=== PATIENT | female | born 1970 | race Caucasian/White ===

== ENCOUNTER 2021-03-17 22:15 | Emergency (ER) | payer OTHER, SELFPAY ==
[2021-03-17 22:17] VITALS: BP 123/76; PULSE 89; RESP 16; TEMP 36.1; O2SAT 97; BMI 32.3
[2021-03-17 22:20] VITALS: BP 123/76; PULSE 89; RESP 16; TEMP 36.1; O2SAT 97
--- NOTE | 2021-03-17 22:30 | RAD_ITS ---
STUDY: X-RAY CHEST REASON FOR EXAM: Female, 50 years old. SOB TECHNIQUE: AP COMPARISON: None. FINDINGS: Bilateral breast implants. No dense airspace consolidation. Mild reticulation in the bilateral lung bases may be accentuated by overlying chest wall artifact. There is no demonstrated pleural abnormality. Normal size heart. Normal mediastinum and michelle. Normal visualized pulmonary arteries. Normal visualized aortic arch and descending thoracic aorta. Normal visualized thoracic spine. Normal visualized ribs, clavicles, and shoulders. There is no demonstrated abnormality of the visualized soft tissue structures of the upper abdomen. RAD/Chest 1 View IMPRESSION: No airspace consolidation. Early bibasilar interstitial infiltrates possible versus chest wall attenuation artifact. Electronically Signed: Tonny Echavarria MD ([place]) at 22:46 EST , Service support ,
[2021-03-17 23:26] LABS: Probe Check PASS; Specimen Processing Control PASS
--- NOTE | 2021-03-17 23:34 | EX.ED.VIS.UR ---
HPI HPI - URI History of Present Illness Chief Complaint: Cough Narrative Narrative: 50-year-old female presenting with cough for 5 days. She states she went to urgent care and her tested positive for COVID-19 and she tested negative. She is been on doxycycline and steroids. Patient states that she was tested twice after her tested positive and she still was negative. She is not having fever or chills. She is not severely dyspneic. She complains of a painful cough but other than that she is eating and drinking normally and making normal urine and stool. ROS ROS ED Constitutional Constitutional ED: Denies chills or fever(s) Eyes Eyes: Denies blurry vision or change in vision ENT ENT ED: Denies rhinorrhea or sore throat Cardiovascular Cardiovascular: Denies chest pain or palpitations Respiratory/Chest Respiratory/Chest: Reports cough and dyspnea Gastrointestinal Gastrointestinal: Denies abdominal pain or nausea Genitourinary Genitourinary ED: Denies dysuria or hematuria Musculoskeletal Musculoskeletal: Denies arthralgias or myalgias Integumentary Denies abscess or rash Neurologic Neurologic: Denies headache(s) or weakness Psychiatric Psychiatric: Denies anxiety or depression PFSH PFSH Home Medications benzonatate 200 mg PO TID PRN 03/17/21 [History Last Taken Unknown] doxycycline hyclate 100 mg PO BID 03/17/21 [History Last Taken Unknown] natalizumab [Tysabri] 300 mg IV Q28D 03/17/21 [History Last Taken Unknown] Allergy/AdvReac Type Severity Reaction Status Date / Time Penicillins [PCN] Allergy Shortness Verified 03/17/21 22:20 of breath Social History Smoking Status: Current some day smoker tobacco type: cigarettes EXAM Physical Exam Const Vital Signs: 03/17/21 22:17 03/17/21 22:20 Temperature 97 F L 97 F L Temperature Source Temporal Temporal Pulse Rate 89 89 Respiratory Rate 16 16 Blood Pressure 123/76 H 123/76 H Blood Pressure Mean 91 91 Pulse Ox 97 97 Oxygen Delivery Method Room Air Room Air Positive well nourished General Appearance ED: NAD; Negative for pallor HEENT Reports moist mucous membranes normocephalic and atraumatic Eyes PERRL and EOMs intact bilaterally Neck supple and no meningeal signs Resp normal respiratory effort and clear to auscultation bilaterally Cardio Rate: regular rate Rhythm: regular rhythm GI non-tender and non-distended Palpation: soft Neuro oriented x3 Sensorium / Orientation: alert Psych mental status grossly normal Skin General Skin Exam: Negative for jaundice or pallor MDM MDM MDM Narrative Medical decision making narrative: Patient presenting with cough and concerned she might have Covid given her 's positive test. She tested negative with the PCR today on day 5. Her chest x-ray on my interpretation does show possible mild interstitial infiltrates. The radiologist does state that this could be chest wall attenuation artifact. Patient is not hypoxic, tachypneic, tachycardic. She nontoxic-appearing. I feel she is safe for discharge home. Patient given return precautions. Impression: 1. Viral syndrome Lab Data Labs: Laboratory Results - last 24 hr 03/17/21 22:24 COVID-19 ([facility]) Negative Radiography Diagnostic Testing: Clinical Impression(s) from Imaging Studies Chest X-Ray 03/17/21 22:30 IMPRESSION: No airspace consolidation. Early bibasilar interstitial infiltrates possible versus chest wall attenuation artifact. Electronically Signed: Tonny Echavarria MD ([place]) at 22:46 EST , Service support , Discharge Plan Triage Chief Complaint: Cough ED Provider: Irineo Rivera Dx/Rx/DC Orders Prescriptions: No Action doxycycline hyclate 100 mg Capsule 100 mg PO BID RF: 0 benzonatate 200 mg Capsule 200 mg PO TID PRN (Reason: Cough) RF: 0 Tysabri 300 mg/15 mL Solution 300 mg IV Q28D RF: 0 Primary Care Provider: Care Physician,No Primary
[2021-03-17 23:48] VITALS: BP 132/65; PULSE 82; RESP 18; O2SAT 95
== END 2021-03-17 23:48 | disposition home or self-care (01) ==
PROVIDERS: Emergency Provider Student in an Organized Health Care Education/Training Program
DX: B34.9 Viral infection, unspecified (principal); F17.210 Nicotine dependence, cigarettes, uncomplicated
CPT/HCPCS: 71045; 87635; 99282; U0005; U0003

== ENCOUNTER 2023-03-10 18:28 | Emergency (ER) | payer OTHER, SELFPAY ==
[2023-03-10 18:30] VITALS: BP 106/53; PULSE 83; RESP 18; TEMP 36.1; O2SAT 93; BMI 31.7
--- NOTE | 2023-03-10 18:49 | EX.ED.DYSGE1 ---
HPI <SIERRA Chavez - Last Filed: 03/10/23 19:57> History of Present Illness Chief Complaint: Cough Narrative Narrative: 52-year-old female with past medical history of asthma, multiple sclerosis on immunosuppressant therapy presents with 3 days of fever, chills, productive cough and shortness of breath. She states her fever was 102F today and she took Motrin but is not sure what time. She used her 's pulse oximeter and it was 83% at rest so she came in for evaluation. She uses an albuterol inhaler but does not wear home oxygen. Denies chest pain. She had posttussive emesis but otherwise no GI symptoms. She smokes 1 pack/day. PFSH <SIERRA Chavez - Last Filed: 03/10/23 19:57> [facility] Medical History (Updated 03/10/23 @ 19:51 by SIERRA Chavez) Anxiety Hyperlipidemia Home Medications benzonatate 200 mg capsule 200 mg PO TID PRN Cough 03/17/21 [History Last Taken Unknown] codeine 10 mg-guaifenesin 100 mg/5 mL oral liquid 5 ml PO Q6H PRN cough 3 days #118 mL 03/17/21 [Rx Last Taken Unknown] doxycycline hyclate 100 mg capsule 100 mg PO BID 03/17/21 [History Last Taken Unknown] natalizumab 300 mg/15 mL intravenous solution (Tysabri) 300 mg IV Q28D 03/17/21 [History Last Taken Unknown] Allergy/AdvReac Type Severity Reaction Status Date / Time Penicillins [PCN] Allergy Shortness Verified 03/10/23 18:30 of breath Social History Smoking Status: Current some day smoker tobacco type: cigarettes ROS <SIERRA Chavez - Last Filed: 03/10/23 19:57> ROS ED ROS Narrative Constitutional: Positive for fever, chills, malaise. CVS: Negative for chest pain, syncope. Respiratory: Positive for shortness of breath, cough. GI: Negative for abdominal pain, diarrhea. EXAM <SIERRA Chavez - Last Filed: 03/10/23 19:57> Physical Exam Narrative Exam Narrative: CONST: Patient sitting in no acute distress. EYES: Normal inspection. NECK: Normal inspection. RESP: No respiratory distress, CTAB. CVS: Regular rate and rhythm, no murmur, no gallop. ABD: Soft and nontender, no guarding or rebound, nondistended. SKIN: Color normal, no rash, warm, dry, intact. EXTREMITIES: Normal appearance, no pedal edema. NEURO: Oriented x4. PSYCH: Normal affect. Const Vital Signs: 03/10/23 18:30 03/10/23 19:14 03/10/23 19:54 Temperature 97 F L Temperature Source Temporal Pulse Rate 83 86 Respiratory Rate 18 14 Respiratory Effort Short of Breath Respiratory Depth Normal Respiratory Pattern Normal Blood Pressure 106/53 L 121/70 H Blood Pressure Mean 70 87 Pulse Ox 93 98 Oxygen Delivery Method Room Air Room Air Room Air <Dr. Chencho Luna MD - Last Filed: 03/10/23 19:21> Physical Exam Const Vital Signs: 03/10/23 18:30 03/10/23 19:14 03/10/23 19:54 Temperature 97 F L Temperature Source Temporal Pulse Rate 83 86 Respiratory Rate 18 14 Respiratory Effort Short of Breath Respiratory Depth Normal Respiratory Pattern Normal Blood Pressure 106/53 L 121/70 H Blood Pressure Mean 70 87 Pulse Ox 93 98 Oxygen Delivery Method Room Air Room Air Room Air MDM <SIERRA Chavez - Last Filed: 03/10/23 19:57> MDM MDM Narrative Medical decision making narrative: History gathered from: Patient and spouse Patient reports recent fever, chills, cough. She appears well and nontoxic. Vital signs within normal limits. She has moist mucous membranes, normal heart and lung sounds. Abdomen soft and nontender. Viral swab is positive for influenza A. CXR shows possible perihilar infiltrates which could be fibrosis versus superimposed pneumonia. Either way it is viral and does not require antibiotics. She states she was hypoxic at home but is 91% or above with ambulation and 97% at rest so does not require admission. I discussed symptomatic care and she was discharged home. Differential: Viral illness, pneumonia I have personally performed a face to face assessment of the patient and have reviewed the MARY ANNE Note. I performed a substantive portion of the visit including all aspects of the following. My spencer findings include: History is 52-year-old female history of MS has had an cough of clear sputum for the last several days. Exam is [52-year-old female no acute distress. Vital signs are stable afebrile. Pulse ox 93% on room air no hypoxia. No distress. H EENT exam unremarkable. Neck nontender no JVD. Lungs clear to auscultation bilaterally. Dry cough. No rales, rhonchi or wheezing. Equal symmetrical. Heart regular rhythm rate about 85 no murmur. Chest wall and ribs nontender. Abdomen soft nontender. Moving all 4 extremities. Nontender no edema. Neurologically she is awake and alert with no focal motor deficits.] Medical Decision Making [52-year-old female with MS with a cough COVID and flu test being obtained along with a chest x-ray. Clinically I do not hear pneumonia.] Other additions or changes: [None] Radiography Diagnostic Testing: Clinical Impression(s) from Imaging Studies Chest X-Ray 03/10/23 19:25 IMPRESSION: Bilateral perihilar reticular densities could represent fibrotic sequela of previous infection. Superimposed pneumonia cannot be excluded. Electronically Signed: Tonny Echavarria MD ([place]) at 19:38 EST Reading Location ID and State: [facility] / [place] , Service support , <Dr. Chencho Luna MD - Last Filed: 03/10/23 19:21> [facility] Narrative Medical decision making narrative: I have personally performed a face to face assessment of the patient and have reviewed the MARY ANNE Note. I performed a substantive portion of the visit including all aspects of the following. My spencer findings include: History is 52-year-old female history of MS has had an cough of clear sputum for the last several days. Exam is [52-year-old female no acute distress. Vital signs are stable afebrile. Pulse ox 93% on room air no hypoxia. No distress. H EENT exam unremarkable. Neck nontender no JVD. Lungs clear to auscultation bilaterally. Dry cough. No rales, rhonchi or wheezing. Equal symmetrical. Heart regular rhythm rate about 85 no murmur. Chest wall and ribs nontender. Abdomen soft nontender. Moving all 4 extremities. Nontender no edema. Neurologically she is awake and alert with no focal motor deficits.] Medical Decision Making [52-year-old female with MS with a cough COVID and flu test being obtained along with a chest x-ray. Clinically I do not hear pneumonia.] Other additions or changes: [None] History & Record Review Discussion w/independent historian: Patient Lab Data Attestation: I reviewed the patient's lab results. Radiography Diagnostic Testing: Clinical Impression(s) from Imaging Studies Chest X-Ray 03/10/23 19:25 IMPRESSION: Bilateral perihilar reticular densities could represent fibrotic sequela of previous infection. Superimposed pneumonia cannot be excluded. Electronically Signed: Tonny Echavarria MD ([place]) at 19:38 EST Reading Location ID and State: [facility] / [place] , Service support , Discharge Plan Triage Chief Complaint: Cough ED Midlevel Provider: Susy James ED Provider: Chencho Luna Dx/Rx/DC Orders Clinical Impression: Influenza A Instructions: ED Influenza (Adult) Prescriptions: No Action doxycycline hyclate 100 mg Capsule 100 mg PO BID benzonatate 200 mg Capsule 200 mg PO TID PRN (Reason: Cough) Tysabri 300 mg/15 mL Solution 300 mg IV Q28D codeine-guaifenesin 10-100 mg/5 mL liquid 5 ml PO Q6H PRN (Reason: cough) 3 Days Qty: 118 0RF Primary Care Provider: Jairo Main Referrals: Care Physician,No Primary [Non-Staff] - Activity Restrictions/Additional Instructions: Rest, drink fluids, and take Tylenol or ibuprofen as needed for fever or pain. If symptoms significantly worsen please be reevaluated. Disposition Disposition: Home, Self Care
[2023-03-10 18:50] VITALS: O2SAT 93
[2023-03-10 19:14] VITALS: BP 121/70; PULSE 86; RESP 14; O2SAT 98
--- NOTE | 2023-03-10 19:25 | RAD_ITS ---
STUDY: X-RAY CHEST REASON FOR EXAM: Female, 52 years old. cough TECHNIQUE: PA and lateral views of the chest. COMPARISON: 03/17/2021 FINDINGS: Bilateral perihilar reticular opacities have not significantly changed. There is no demonstrated pleural abnormality. Normal size heart. Normal mediastinum and michelle. Normal visualized pulmonary arteries. Normal visualized aortic arch and descending thoracic aorta. Normal visualized thoracic spine. Normal visualized ribs, clavicles, and shoulders. There is no demonstrated abnormality of the visualized soft tissue structures of the upper abdomen. RAD/Chest PA and Lateral IMPRESSION: Bilateral perihilar reticular densities could represent fibrotic sequela of previous infection. Superimposed pneumonia cannot be excluded. Electronically Signed: Tonny Echavarria MD ([place]) at 19:38 EST ,
[2023-03-10 19:54] VITALS: O2SAT 93
== END 2023-03-10 20:05 | disposition home or self-care (01) ==
PROVIDERS: Emergency Provider Emergency Medicine; PCP Family Medicine Geriatric Medicine; Visit Provider Emergency Medicine
DX: J10.1 Influenza due to other identified influenza virus with other respiratory manifestations (principal); F17.210 Nicotine dependence, cigarettes, uncomplicated
CPT/HCPCS: 71046; 87428; 99282

== ENCOUNTER → 2023-07-19 | Outpatient (CLI) | payer OTHER, SELFPAY ==
--- NOTE | 2023-07-19 16:15 | RAD_ITS ---
STUDY: X-RAY LEFT FOOT, FIRST TOE REASON FOR EXAM: Female, 53 years old. [place] OF GREAT TOE TECHNIQUE: 3 view(s) of the toe were obtained. COMPARISON: None. FINDINGS: Normal visualized metatarsus. Normal metatarsophalangeal (M.T.P) joint. Normal interphalangeal joint. Normal phalanges. The soft tissue structures are unremarkable. RAD/Toe(s) Min 2 Views IMPRESSION: Normal x-ray of the toe. Electronically Signed: Javy Weinstein MD at 17:08 EDT ,
[2023-07-19 16:25] LABS: Absolute Lymphocyte Count 5.99 X10^3/uL (0.83-4.51); Absolute Neutrophil Count 6.7 X10^3/uL (2.0-7.7); Basophil# 0.13 X10^3/uL; Basophil% 0.9 % (0-1); Eosinophil# 0.55 X10^3/uL; Eosinophils% 3.8 % (0-5); Hematocrit 43.5 % (37-47); Lymphocyte # 5.99 X10^3/ul (0.83-4.51); Lymphocyte % 41.9 % (19-41); Mean Corp Hgb Conc 32.2 g/dL (32-36); Mean Corpuscular Hgb 27.4 pg (27.0-32.0); Mean Corpuscular Volume 85.1 fL (81-99); Mean Platelet Vol. 9.9 fl (6.2-12.0); Monocyte# 0.69 X10^3/uL; Monocyte% 4.8 % (0-10); NRBC Flagged by Analyzer 0.3 % (0-5); Neutrophil # 6.74 X10^3/uL (2.7-7.7); Neutrophil % 47.2 % (47-70); POSITIVE DIFFERENTIAL YES; POSITIVE MORPHOLOGY YES; Platelet Count 241 K/mm3 (150-450); RBC Distribution Width CV 14.8 % (11.6-14.6); Red Blood Count 5.11 M/mm3 (4.2-5.4); White Blood Count 14.3 K/mm3 (4.4-11.0)
[2023-07-19 16:30] LABS: Differential Indicated SCAN CRITERIA MET
[2023-07-19 16:39] LABS: Erythrocyte Sedimentation Rate 10 mm/hr (0-30)
[2023-07-19 16:50] LABS: CRP 7.03 mg/L (0.0-3.0)
[2023-07-19 17:14] LABS: Differential Comment SCANNED; Reactive Lymphocyte 2+
== END | disposition home or self-care (01) ==
LOC: LAB 15:46
PROVIDERS: PCP Family Medicine Geriatric Medicine
DX: L03.032 Cellulitis of left toe (principal)
CPT/HCPCS: 36415; 73660; 85025; 85652; 86140

== ENCOUNTER 2024-08-03 11:50 | Emergency (ER) | payer OTHER, SELFPAY ==
[2024-08-03 11:51] VITALS: PULSE 78; RESP 19; TEMP 36.6; O2SAT 98; BMI 34.0
--- NOTE | 2024-08-03 12:25 | ED.VIS.GI ---
HPI HPI - GI History of Present Illness Chief Complaint: Abd Pain Detail of Chief Complaint: Left flank pain an hour ago. Informant: patient and spouse/S.O. Abdominal Pain/Flank Pain Onset: Today Context: Gradual Onset Timing: Continuous Quality: Sharp Location: Left Flank Current Severity: Moderate Maximum Severity: Severe Worsened by: Nothing Relieved by: Nothing Nausea/Vomiting/Emesis GI Symptom: Negative for Nausea or Vomiting Diarrhea/Melena/Hematochezia GI Symptom: Negative for Diarrhea, Melena or Hematochezia Associated Symptoms Associated Symptoms: Negative for Dysuria, Frequency, Hematuria or Urgency Narrative Narrative: 54-year-old female history of MS. This is bilateral at home when she was drinking coffee she had sudden onset left flank pain. Initially was severe pain 9 out of 10 now is currently a 5. She denies any nausea, vomiting or diarrhea. No fever or chills. No dysuria or hematuria. She did have a kidney stone 1 time thought it felt different than this. Has never had diverticulitis. She has had a prior hysterectomy but denies any other abdominal surgeries. Denies any trauma. Prior similar symptoms: No Recent Illness/Hospitalization: No PFSH PFSH Medical History Anxiety Hyperlipidemia Home Medications ?Medication ?Instructions ?Recorded ?Last Taken ?Type baclofen 10 mg tablet 20 mg PO BID PRN 08/03/24 Unknown History dextroamphetamine-amphetamine 10 2 tab PO DAILY 08/03/24 08/02/24 History mg tablet oxycodone-acetaminophen 5 mg-325 1 tab PO Q4H PRN pain 3 days #14 08/03/24 Unknown Rx mg tablet (Percocet) tabs pantoprazole 40 mg tablet,delayed 40 mg PO DAILY 08/03/24 08/02/24 History release Allergy/AdvReac Type Severity Reaction Status Date / Time Penicillins (PCN) Allergy Shortness Verified 08/03/24 11:51 of breath Social History Smoking Status: Current some day smoker tobacco type: cigarettes ROS ROS ED ROS Narrative Left flank pain. Denies nausea, vomiting, diarrhea or fever. No constipation. No dysuria or hematuria. No vaginal bleeding. Constitutional Constitutional ED: Denies chills or fever(s) ENT ENT ED: Denies ear pain Cardiovascular Cardiovascular: Denies chest pain Respiratory/Chest Respiratory/Chest: Denies cough or dyspnea Gastrointestinal Gastrointestinal: Reports abdominal pain; Denies constipation, diarrhea, melena, nausea or vomiting Genitourinary Genitourinary ED: Denies dysuria, hematuria or urinary frequency Musculoskeletal Musculoskeletal: Denies arthralgias, back pain or myalgias Integumentary Denies abscess or Abrasions Neurologic Neurologic: Denies headache(s) Psychiatric Psychiatric: Denies anxiety Endocrine Endocrinology: Denies polydipsia Hematologic/Lymphatic Hematologic/Lymphatic: Denies easy bleeding, easy bruising or lymphadenopathy Allergic/Immunologic Allergic/Immunologic ED: Denies mouth swelling, tongue swelling or urticaria EXAM Physical Exam Narrative Exam Narrative: 54-year-old female lying on her side in bed. at bedside. Vital signs are stable afebrile. She is in no acute distress. H EENT exam pupils round reactive light. Moist mucous membranes. Neck nontender no lymphadenopathy. Back and spine nontender. No CVA tenderness. Lungs clear to auscultation. Heart regular rhythm rate about 80 no murmur. Chest wall ribs nontender. Abdomen soft nondistended normal bowel sounds without peritoneal signs. She has mild left lower quadrant tenderness. No ecchymosis or bruising. No rashes. Right upper and right lower quadrant unremarkable. No hernia. No obstruction. No pulsatile mass. Moving all 4 extremities. Nontender no edema. Normal strength. Neurologically she is awake alert no focal motor deficits. Answering questions following commands. Const Vital Signs: 08/03/24 11:51 08/03/24 12:39 08/03/24 14:00 Temperature 97.8 F Temperature Source Oral Pulse Rate 78 74 Respiratory Rate 19 H 19 H Blood Pressure 137/66 H 116/57 L Blood Pressure Mean 89 76 Pulse Ox 98 94 Oxygen Delivery Method Room Air Nasal Cannula Positive well nourished and well developed; Negative for cachectic, contractures or unkempt General Appearance ED: well developed and NAD; Negative for unkempt, cachectic, contractures or pallor Nutritional Appearance: Negative for cachectic HEENT Reports moist mucous membranes normocephalic and atraumatic; Negative for trauma or tenderness Eyes PERRL and EOMs intact bilaterally General Eye ED: Negative for pale conjunctiva or scleral icterus Neck no lymphadenopathy, supple and no JVD General: Negative for tenderness Resp normal respiratory effort and clear to auscultation bilaterally Effort and Inspection: Negative for respiratory distress Auscultation: Negative for rales, rhonchi, wheezes or diminished lung sounds Cardio regular rate, regular rhythm, S1 normal heart sound, S2 normal heart sound and no murmurs GI non-distended and no masses; Negative for non-tender GI Narrative: Mild left sided abdominal left lower quadrant tenderness. No hernia or mass. No distention obstruction. Both the right upper right lower quadrant unremarkable. Back is nontender. No rashes or signs of trauma. Inspection: Negative for abdominal distention Auscultation: normoactive bowel sounds Palpation: soft and tender; Negative for guarding, rigid, hernia, mass, pulsatile mass or rebound tenderness present Back/Spine no CVA tenderness General Back: Negative for CVA tenderness Cervical Spine: Negative for cervical spine tenderness Thoracic Spine / Upper Back: Negative for thoracic spinal tenderness Lumbar Spine / Lower Back: Negative for lumbar spinal tenderness Extremity full ROM General Extremety ED: Negative for edema or tenderness General Extremity: Negative for edema Neuro CN's II-XII intact bilaterally and moves all extremities Sensorium / Orientation: alert, oriented to person, oriented to place and oriented to time; Negative for orientation impaired, confused, lethargic or stuporous Motor Exam: strength 5/5 throughout Psych mental status grossly normal and thought process normal Appearance: Negative for unkempt Attitude: No agitated Mood & Affect: Negative for depressed, anxious or tearful Skin no wounds General Skin Exam: Negative for jaundice or pallor Lesions: no lesions Rashes: no rashes Trauma: Negative for abrasion Image ED - Body Diagram Man:  1. Left lower quadrant tenderness. MDM MDM MDM Narrative Medical decision making narrative: 54-year-old female left lower quadrant abdominal pain. To the nature of the pain it may be a kidney stone versus UTI versus diverticulitis versus other etiology. She currently did not want anything for pain and nausea. CAT scan of be obtained and labs along with urinalysis. Patient started having increasing pain again. She was treated with IV Dilaudid, Toradol and Zofran. Repeat exam at 1:40 PM patient's pain is much improved after the IV Toradol and Dilaudid. Resting more comfortably. CAT scan does show a left ureteral stone at 7 mm. Patient doing well at 2 PM. Does not need any more pain medication at this time. We are just awaiting her urinalysis result. She is close will be discharged home with outpatient follow-up. Patient doing well at 2:26 PM. She will be discharged home. Percocet for pain. Follow-up with urology. Return if worse. History & Record Review Discussion w/independent historian: Patient Additional record(s) reviewed:: Prior inpatient record, Prior outpatient record, Prior ED visit and Prior labs Lab Data Attestation: I reviewed the patient's lab results. Lab results narrative: CBC shows a white count of 14.8. H&H 14 and 44. Platelets 229. Chemistry shows sodium 139. Gap 9. BUN 19 creatinine 0.6. Glucose 126. Liver enzymes unremarkable. Lipase normal at 30. CT abdomen pelvis shows a left ureteral stone at 7 mm with hydroureter and hydronephrosis Urinalysis shows 250 occult blood. No nitrates. Greater 100 red cells. No white cells 2+ bacteria. Labs: Laboratory Results - last 24 hr 08/03/24 08/03/24 12:32 13:33 WBC 14.8 H RBC 5.23 Hgb 14.6 Hct 44.6 MCV 85.3 MCH 27.9 MCHC 32.7 RDW Std Deviation 45.7 H RDW Coeff of Saumya 14.7 H Plt Count 229 MPV 9.5 Immature Gran % (Auto) 1.100 H Neut % (Auto) 58.0 Lymph % (Auto) 29.8 Evans % (Auto) 5.7 Eos % (Auto) 4.3 Baso % (Auto) 1.1 H Absolute Neuts (auto) 8.6 H Absolute Lymphs (auto) 4.42 Nucleated RBC % 0 Sodium 139 Potassium 4.2 Chloride 105 Carbon Dioxide 24.7 Anion Gap 9 BUN 19 Creatinine 0.62 L Estim Creat Clear Calc 119.41 Est GFR (MDRD) Non-Af 105 BUN/Creatinine Ratio 29.7 H Glucose 126 H Calcium 7.5 L Total Bilirubin 0.43 AST 19 ALT 21 Alkaline Phosphatase 92 Total Protein 6.7 Albumin 3.8 Globulin 2.8 Albumin/Globulin Ratio 1.4 Lipase 30 Urine Color Yellow Urine Clarity Cloudy Urine pH 7.0 Ur Specific [place] 1.015 Urine Protein 30 H Urine Glucose (UA) Normal Urine Ketones Negative Urine Occult Blood 250 H Urine Nitrite Negative Urine Bilirubin Negative Urine Urobilinogen 1 H Ur Leukocyte Esterase 25 H Urine RBC > 100 SEEN Urine WBC 0-5 SEEN Ur Squamous Epith Cells 0-5 SEEN Urine Bacteria 2+ Urine Mucus 0 SEEN Radiography Diagnostic Testing: Clinical Impression(s) from Imaging Studies Abdomen/Pelvis CT 08/03/24 13:15 IMPRESSION: 1. At least partially obstructing proximal left ureteral stone measuring 0.7 cm with mild hydroureteronephrosis. 2. Additional nonobstructing bilateral renal calculi. 3. Small, partially visualized nodule just posterior to the right nipple. Correlation with diagnostic mammography is recommended if not recently performed for further evaluation. 4. Moderate hepatomegaly. Reading Location: [facility] Discharge Plan Triage Chief Complaint: Abd Pain ED Provider: Chencho Luna Dx/Rx/DC Orders Clinical Impression: Kidney stone on left side, Acute left flank pain Instructions: ED Kidney Stone with Pain Prescriptions: New oxycodone-acetaminophen [Percocet] 5-325 mg tablet 1 tab PO Q4H PRN (Reason: pain) 3 Days Qty: 14 0RF No Action dextroamphetamine-amphetamine 10 mg tablet 2 tab PO DAILY baclofen 10 mg tablet 20 mg PO BID PRN pantoprazole 40 mg tablet,delayed release (DR/EC) 40 mg PO DAILY Primary Care Provider: Jairo Main Referrals: Rafy Kaur MD [Med Staff - Active Staff] - 1-2 Days if not improving Jairo Main MD [Primary Care Provider] - Activity Restrictions/Additional Instructions: Plenty of fluids and rest. Follow-up with the urologist if your pain is not improving. Percocet and/or Motrin as needed for pain. If you are having intractable pain, vomiting feeling worse or fever return. Otherwise follow-up with the urologist for your kidney stone as needed. Plenty of fluids and rest. Fruits, vegetables, fiber and stool softener as needed while using the narcotic pain medication. Print Language: German Disposition Disposition: Home, Self Care
[2024-08-03 12:39] VITALS: BP 137/66
[2024-08-03 12:43] LABS: Absolute Lymphocyte Count 4.42 X10^3/uL (0.83-4.51); Absolute Neutrophil Count 8.6 X10^3/uL (2.0-7.7); Basophil# 0.16 X10^3/uL; Basophil% 1.1 % (0-1); Eosinophil# 0.64 X10^3/uL; Eosinophils% 4.3 % (0-5); Hematocrit 44.6 % (37-47); Hemoglobin 14.6 g/dL (12.0-15.0); Lymphocyte # 4.42 X10^3/ul (0.83-4.51); Lymphocyte % 29.8 % (19-41); Mean Corp Hgb Conc 32.7 g/dL (32-36); Mean Corpuscular Hgb 27.9 pg (27.0-32.0); Mean Corpuscular Volume 85.3 fL (81-99); Mean Platelet Vol. 9.5 fl (6.2-12.0); Monocyte# 0.85 X10^3/uL; Monocyte% 5.7 % (0-10); NRBC Flagged by Analyzer 0 % (0-5); Platelet Count 229 K/mm3 (150-450); RBC Distribution Width CV 14.7 % (11.6-14.6); RBC Distribution Width SD 45.7 fl (35.1-43.9); Red Blood Count 5.23 M/mm3 (4.2-5.4); White Blood Count 14.8 K/mm3 (4.4-11.0)
[2024-08-03] MEDS: Ketorolac 30 MG/ML Syringe IV (13:05)
[2024-08-03] MEDS: Ondansetron 4 MG/2 ML Vial IV (13:06)
[2024-08-03] MEDS: HYDROmorphone 1 MG/ML Syringe IV (13:06)
[2024-08-03 13:09] LABS: Lipase 30 U/L (13-75)
--- NOTE | 2024-08-03 13:15 | CT_ITS ---
PROCEDURE: ABDOMEN/PELVIS W IV CONT ONLY 08/03/2024 REASON FOR EXAM: LEFT FLANK PAIN TECHNIQUE: Abdomen and pelvis CT with intravenous contrast. Coronal and Sagittal reconstruction series were provided. PATIENT PREPARATION: Per protocol ORAL CONTRAST TYPE: None. CONTRAST: Isovue 370 VOLUME: 100 mL One or more dose reduction techniques were used (e.g., Automated exposure control, adjustment of the mA and/or kV according to patient size, use of iterative reconstruction technique. RADIATION DOSE SUMMARY: CTDlvol: 18 mGy DLP: 1200 mGycm COMPARISON: None FINDINGS: Lung bases: Bibasilar atelectasis. The heart is normal in size. Liver: Moderate hepatomegaly without discrete hepatic mass. The major portal veins are patent. No biliary ductal dilation. Gallbladder: No radiopaque stones within the gallbladder. Spleen: Normal size. Pancreas: Unremarkable. Adrenals: Bilateral adrenal masses, [id number]. The right adrenal mass measures 2.8 by 2.5 cm (series 2, image 18), and the left adrenal mass measures 1.8 x 1.2 cm (series 2, image 20). Kidneys: At least partially obstructing proximal left ureteral stone measuring 0.7 cm (coronal image 72). There is mild proximal hydroureteronephrosis. Additional nonobstructing bilateral renal calculi. No right hydronephrosis. Bladder: Mildly distended and unremarkable. Reproductive Organs: Prior hysterectomy. Simple right ovarian cyst Bowel: The bowel loops are normal in caliber. No ascites or pneumoperitoneum. Normal appendix. Lymph nodes: No suspicious lymph node enlargement. Vasculature: Moderate mixed atherosclerotic plaque throughout the aortoiliac vessels. Bones/soft tissues: Partially visualized prior breast augmentation. Small, partially visualized nodule just posterior to the right nipple (series 2, image 2). Unremarkable osseous structures. CT/Abdomen/Pelvis W IV Cont ONLY IMPRESSION: 1. At least partially obstructing proximal left ureteral stone measuring 0.7 cm with mild hydroureteronephrosis. 2. Additional nonobstructing bilateral renal calculi. 3. Small, partially visualized nodule just posterior to the right nipple. Gordon elation with diagnostic mammography is recommended if not recently performed for further evaluation. 4. Moderate hepatomegaly. Reading Location: [id number]
[2024-08-03 13:18] LABS: ALB/GLOB Ratio 1.4 RATIO (0.9-2.4); AST(SGOT) 19 U/L (<=31); Alanine Aminotransfer ALT/SGPT 21 U/L (<=34); Albumin, Serum 3.8 g/dL (3.5-5.0); Alkaline Phosphatase 92 U/L (35-104); Anion Gap 9 (5-15); BUN 19 mg/dL (4-19); BUN/Creat Ratio 29.7 RATIO (10-20); Calcium,Total 7.5 mg/dL (7.6-11.0); Carbon Dioxide 24.7 mmol/L (21.0-32.0); Chloride 105 mmol/L (98-108); Creatinine, Serum 0.62 mg/dL (0.70-1.20); EST Glomerular Filtration Rate 105 (>60); Estimated Creatinine Clearance 119.41 ml/min (50-250); Globulin 2.8 g/dL (2.2-4.2); Glucose 126 mg/dL (70-99); Potassium 4.2 mmol/L (3.3-5.1); Protein, Total 6.7 g/dL (5.9-8.4); Sodium Level 139 mmol/L (133-145); Total Bilirubin 0.43 mg/dL (0.00-1.30)
[2024-08-03 13:54] LABS: Mucous, Urine 0 SEEN /hpf (<or=2+)
[2024-08-03 14:00] VITALS: BP 116/57; PULSE 74; RESP 19; O2SAT 94
[2024-08-03 14:03] LABS: Color, Urine Yellow (Yellow); Glucose, Dipstick Normal (Normal); Ketone-Dipstick Negative (Negative); Leukocyte Esterase-Dipstick 25 /ul (Negative); Nitrite-Dipstick Negative (Negative); Occult Blood-Urine 250 /ul (Negative); Protein-Dipstick 30 mg/dl (Negative); Specific Gravity, Urine 1.015 (1.002-1.030); Urine Bilirubin Dipstick Negative (Negative); Urine Clarity Cloudy (Clear); Urine Urobilinogen 1 mg/dl (Normal)
[2024-08-03 14:11] LABS: Red Blood Cells-Urine > 100 SEEN /hpf (0-5); White Blood Cells 0-5 SEEN /hpf (0-5)
[2024-08-03 14:12] LABS: Bacteria 2+ /hpf (None Seen); Squamous Epithelial Cells - UA 0-5 SEEN /hpf (5-10)
[2024-08-03 14:29] VITALS: BP 118/59; PULSE 77; RESP 19; TEMP 36.8; O2SAT 98
== END 2024-08-03 14:37 | disposition home or self-care (01) ==
PROVIDERS: Emergency Provider Emergency Medicine; PCP Family Medicine Geriatric Medicine; Referring Provider Emergency Medicine; Visit Provider Emergency Medicine
DX: R10.32 Left lower quadrant pain (principal); N13.2 Hydronephrosis with renal and ureteral calculous obstruction; Z90.710 Acquired absence of both cervix and uterus; E78.5 Hyperlipidemia, unspecified; F17.210 Nicotine dependence, cigarettes, uncomplicated
CPT/HCPCS: 74177; 80053; 81001; 83690; 85025; 96374; 96375; 96376; 99285; Q9967; A4216; J2405

== ENCOUNTER → 2024-08-11 | Outpatient (CLI) | payer OTHER, SELFPAY ==
--- NOTE | 2024-08-11 09:47 | RAD_ITS ---
PROCEDURE: ABDOMEN SINGLE VIEW 08/11/2024 REASON FOR EXAM: CALCULUS OF URETER TECHNIQUE: Single view abdomen. COMPARISON: August 03, 2024 CT FINDINGS: There is a nonobstructive bowel gas pattern with a moderate stool load. There is a 0.3 cm calcification overlying the right upper renal shadow, similar to the prior CT. There are calcifications in the right and left pelvis with distal ureteral stone not excluded. Phleboliths are noted in the pelvis. There is no visible acute bony abnormality. RAD/Abdomen Single View IMPRESSION: Right nephrolithiasis, unchanged. There are calcifications in the right and left pelvis with distal ureteral ston e not excluded. Consider CT correlation. Reading Location: [facility]
== END | disposition home or self-care (01) ==
PROVIDERS: Referring Provider Urology; Visit Provider Urology
DX: N20.1 Calculus of ureter (principal)
CPT/HCPCS: 74018

== ENCOUNTER 2024-09-15 11:15 | Day surgery (SDC) | payer OTHER, SELFPAY ==
[2024-09-15] VITALS (10 sets, daily range): BP systolic 145–173; BP diastolic 68–79; PULSE 60–73; RESP 14–16; TEMP 36.2–36.6; O2SAT 94–99; BMI 33.4
--- NOTE | 2024-09-15 11:20 | CT_ITS ---
PROCEDURE: ABDOMEN/PELVIS WITHOUT CONT 09/15/2024 REASON FOR EXAM: URINARY CALCULUS, UNSPECIFIED TECHNIQUE: Abdomen and pelvis CT without intravenous contrast. Noncontrast technique limits evaluation of the abdominal and pelvic viscera. Coronal and Sagittal reconstruction series were provided. One or more dose reduction techniques were used (e.g., Automated exposure control, adjustment of the mA and/or kV according to patient size, use of iterative reconstruction technique). PATIENT PREPARATION: Per protocol ORAL CONTRAST TYPE: None. COMPARISON: CT abdomen and pelvis with IV contrast, 08/03/2024. FINDINGS: Lung bases: There is diffuse bibasilar bronchiectasis and there is pleural-based linear scarring/consolidation in the lower lobe of the right lung, the middle lobe of the right lung in the inferior segment of the lingula. There is a small right pleural effusion. The heart size is normal. There is no pericardial effusion. There is minimal calcific vascular disease of the coronary arteries. Liver: There is hepatomegaly with the liver measuring 19.8 cm in vertical dimension in the midclavicular line. Gallbladder: Normal. Spleen: There is mild splenomegaly with the spleen measuring 13.1 cm in pole to pole length. Pancreas: Normal unenhanced appearance. Adrenals: There are low-density nodules in both adrenal glands, consistent with adenomas, measuring 2.6 cm in diameter on the right and 1.7 cm in diameter on the left. Kidneys: There is a 5 mm stone in an upper pole calyx of the right kidney (max HU, 1105). There is a 1 mm stone in a lower pole calyx of the right kidney (max HU, 169). There is a moderately obstructing distal ureteral stone on the left measuring 3 x 2 mm (max HU 260). There is a 2 mm stone in an upper pole calyx of the left kidney (max HU, 347). There are 3 x 3 mm stones in interpolar calices of the left kidney (max HU, 441). There is a 2 mm stone in a lower pole calyx of the left kidney (max HU, 143). Bladder: The urinary bladder has a normal unenhanced appearance. Reproductive Organs: The uterus is surgically absent. There is a right ovarian cyst measuring 5.3 cm in diameter. The left ovary is unremarkable. There is no free fluid in the pelvis. There is no pelvic or inguinal lymphadenopathy. Bowel: Unremarkable. Appendix: Normal. Lymph nodes: No significant mesenteric or retroperitoneal lymphadenopathy. Vasculature: There is calcific vascular disease of the abdominal aorta. Peritoneum / Retroperitoneum: There are no abnormal intra or retroperitoneal masses or fluid collections. Bones: There are no significant bony abnormalities. Abdominal wall: There are bilateral breast prostheses. CT/Abdomen/Pelvis without Cont IMPRESSION: 1. Moderately obstructing 3 x 2 mm distal ureteral stone on the left. There i s only 1 stone definitely seen in the left ureter at this time. 2. Bilateral nephrolithiasis. 3. Hepatosplenomegaly. 4. Other findings as noted. Reading Location: [id number]
--- NOTE | 2024-09-15 11:51 | PCM.HP.STD ---
HPI - General General Date of Service: 09/15/24 Chief Complaint: Left hydronephrosis HPI Narrative REJI MCCRAY, is a 54 F who presents to my office today with left severe flank pain she underwent ureteroscopy and laser of stone last week with no stent came back to my office in severe pain so we did an ultrasound that demonstrated hydronephrosis and then I did a CAT scan that demonstrated hydroureteronephrosis but no obstructing stones she does have edema and swelling in the distal ureter so plan today is taken to surgery for cystoscopy and left stent placement to alleviate obstruction and then remove the stent in about a week. [facility] Medical History Anxiety Hyperlipidemia Home Medications ?Medication ?Instructions ?Recorded ?Last Taken ?Type baclofen 10 mg tablet 20 mg PO BID PRN 08/03/24 Unknown History dextroamphetamine-amphetamine 10 2 tab PO DAILY 08/03/24 08/02/24 History mg tablet oxycodone-acetaminophen 5 mg-325 1 tab PO Q4H PRN pain 3 days #14 08/03/24 Unknown Rx mg tablet (Percocet) tabs pantoprazole 40 mg tablet,delayed 40 mg PO DAILY 08/03/24 08/02/24 History release Allergy/AdvReac Type Severity Reaction Status Date / Time Penicillins (PCN) Allergy Shortness Verified 09/15/24 11:50 of breath Social History Smoking Status: Current some day smoker tobacco type: cigarettes
[2024-09-15] MEDS: Lactated Ringers 1,000 ML 15 ML IV (12:05)
--- NOTE | 2024-09-15 12:15 | PCM.PRE.AN2 ---
ASA Classification* ASA Classification ASA Classification: 2 Assessment & Plan Anesthesia* Anesthesia Assessment Anesthesia Assessment: Discussed sedation and/or anesthesia options, risks, benefits, and alternatives with patient/parents/legal guardian/POA. Questions invited. The patient/parents/legal guardian/POA seems to understand and agrees to proceed with anesthesia plan. Reviewed the physical assessment, medical history, allergy history and patient home medications list prior to surgery/procedure/anesthetic and documented any changes. Performed airway and anesthesia risk assessments. Anesthesia Type Anesthesia Type: MAC History Source History Obtained from:: Patient and Chart Anesthesia Focused Assessment* Temperature: 97.8 F Pulse Rate: 71 Blood Pressure: 150/68 Respiratory Rate: 16 Pulse Ox: 99 Oxygen Delivery Method: Room Air Airway Assessment Mouth opens: >3 cm Mallampati Score: III Teeth Condition: Dentures (Patient has full upper and lower dentures.) Neck Range of motion (ROM): Full ROM Focused Labs Anesthesia Preop lab: CBC WBC 14.8 K/mm3 (4.4-11.0) H 08/03/24 12:08/03/24 RBC 5.23 M/mm3 (4.2-5.4) 08/03/24 12:08/03/24 Hgb 14.6 g/dL (12.0-15.0) 08/03/24 12:08/03/24 Hct 44.6 % (37-47) 08/03/24 12:08/03/24 Plt Count 229 K/mm3 (150-450) 08/03/24 12:08/03/24 CHEMISTRY Potassium 4.2 mmol/L (3.3-5.1) 08/03/24 12:08/03/24 Sodium 139 mmol/L (133-145) 08/03/24 12:08/03/24 BUN 19 mg/dL (4-19) 08/03/24 12:08/03/24 Creatinine 0.62 mg/dL (0.70-1.20) L 08/03/24 12:08/03/24 Glucose 126 mg/dL (70-99) H 08/03/24 12:32 08/03/24 COAG Pre-Assessment Diagnosis/Proposed Procedure Planned Operative Procedure(s): cysto, stent Anesthesia History 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 When Was Last Pacemaker Check QUESTION #4 FULL TEXT: You/Your Family Experience fever (hyperthermia) with Anesthesia Last Oral Intake Last Oral intake: Last Oral Intake NPO since 09:00 09/15/24 11:54 Meds taken in AM with sips of No 09/15/24 11:54 water? Meds patient instructed to take am of surgery PONV PONV - financial sales manager: PONV - financial sales manager Female Yes 09/15/24 11:54 HX of Motion Sickness Yes 09/15/24 11:54 HX of N/V After Surgery No 09/15/24 11:54 Non-Smoker No 09/15/24 11:54 Duration of Surgery greater No 09/15/24 11:54 than 60 minutes Number of Risk Factors 2 09/15/24 11:54 PONV Score Moderate Risk 09/15/24 11:54 Height & Weight Height & Weight: Anesthesia: Height & Weight Height 5 ft 6 in 09/15/24 11:54 Weight: 94 kg 09/15/24 11:54 Body Mass Index (BMI) 33.4 09/15/24 11:54 Respiratory Assessment Respiratory Assessment - financial sales manager: Respiratory Tract Infection Hx - financial sales manager Hx Respiratory Tract Infection No 09/15/24 11:54 STOP Sleep Apnea STOP Sleep Apnea - financial sales manager: STOP Sleep Apnea - financial sales manager Hx Hypertension No 09/15/24 11:54 Hx Sleep Apnea No 09/15/24 11:54 CPAP BIPAP Do you snore loudly (louder Yes 09/15/24 11:54 than talking or can be heard Do you often feel tired/ No 09/15/24 11:54 fatigued/ sleepy during daytime? Has anyone observed you stop No 09/15/24 11:54 breathing during sleep? STOP Results Negative 09/15/24 11:54 QUESTION #5 FULL TEXT : Do you snore loudly (louder than talking or can be heard through closed doors)? Tobacco Use History Tobacco Use History - financial sales manager: Tobacco Use History - financial sales manager Tobacco Use Smoking Status Current some day smoker 09/15/24 11:54 Hx Tobacco Use Yes 09/15/24 11:54 Years Smoking Packs Smoked per Day Smoking Cessation Date was within the last 15 years Hx Smoking Cessation Date Hx Smoking Cessation Counseling Any additional information?: Yes Smoking Status: Current every day smoker (Patient smoked today.) Hematologic Medial History Hematologic Hx - financial sales manager: Hematologic Medical Hx - steelworker Hx of Blood Transfusion No 09/15/24 11:54 Hx of Transfusion in last 3 No 09/15/24 11:54 Months Date of Last Transfusion (if within last 3 months) Ever experience any problems No 09/15/24 11:54 with transfusion(s)? Specify any problems Hx of Preganancy in last 3 N/A 09/15/24 11:54 Months Nurse Filling Out Transfusion MICHELLE 09/15/24 11:54 & Questions: Date: 09/15/24 09/15/24 11:54 Time: 11:59 09/15/24 11:54 Patient unable to answer at this time (ie. confused, unrespo /Reproduction History /Reproductive History - financial sales manager: /Reproductive Hx- financial sales manager Hx Now No 09/15/24 11:54 Gestational Age (in weeks): EDC: Hx Hx Para Hx Section SAB No 09/15/24 11:54 Active Medications Active Medications: Current Medications Generic Name Dose Route Start Last Admin Trade Name Freq PRN Reason Stop Dose Admin Lactated Ringer's 1,000 mls @ 15 mls/hr 09/15/24 11:45 09/15/24 12:05 IV 15 mls/hr .Q48H VON Administration Cefazolin Sodium 2 gm/ Sodium 110 mls @ 150 mls/hr 09/15/24 12:00 Chloride IV 09/15/24 12:43 X1 ONE PFSH Medical History (Updated 09/15/24 @ 12:[address] Rafy Kaur MD) Cervical cancer Multiple sclerosis Anxiety Hyperlipidemia Home Medications ?Medication ?Instructions ?Recorded ?Last Taken ?Type baclofen 10 mg tablet 20 mg PO BID PRN 08/03/24 Unknown History dextroamphetamine-amphetamine 10 2 tab PO DAILY 08/03/24 08/02/24 History mg tablet pantoprazole 40 mg tablet,delayed 40 mg PO DAILY 08/03/24 08/02/24 History release ciprofloxacin HCl 500 mg tablet 500 mg PO BID #10 tabs 09/15/24 Unknown Rx hydromorphone 2 mg tablet 2 mg PO Q4H PRN pain 09/15/24 Unknown History (Dilaudid) ketorolac 10 mg tablet 10 mg PO Q6H PRN pain 09/15/24 Unknown History oxycodone 5 mg tablet 5 mg PO Q6H PRN pain 3 days #20 09/15/24 Unknown Rx tabs phenazopyridine 100 mg tablet 100 mg PO TID PRN pain #14 tabs 09/15/24 Unknown Rx (Pyridium) Allergy/AdvReac Type Severity Reaction Status Date / Time Penicillins (PCN) Allergy Shortness Verified 09/15/24 11:50 of breath Family History (Updated 09/15/24 @ 11:56 by Florence Burns) Other Heart disease Surgical History (Updated 09/15/24 @ 11:56 by Florence Burns) H/O breast augmentation History of hysterectomy Social History (Updated 09/15/24 @ 11:56 by Florence Burns) adopted: No household members: spouse housing: house Smoking Status: Current some day smoker tobacco type: cigarettes Review of Systems (Anesthesia) ROS Narrative System reviewed and no additional complaints, except as documented.
--- NOTE | 2024-09-15 12:18 | DCINST_ITS ---
Discharge Instructions Diet Discharge Diet: No restrictions DC O2, CPAP, BIPAP needs Home O2 Discharge instructions: No Dressing / Incision Discharge Activity: Return to Normal Activity and May Not Drive (while taking narcotic pain medications.) Dressing / Incision Call your doctor if you observe: Fever of 101 or Higher Follow Up Care Please Follow Up With: Rafy Kaur MD When: Call [phone] for an appointment Test Results: Test results from this visit will be discussed in further detail at your follow- up appointment, if applicable. Discharge Plan Admission Primary Reason for Your Visit: left stent placement Attending Provider: Rafy Kaur Primary Care Provider: HERBER HUFF Instructions Print Language: Egyptian Discharge Orders/Prescriptions Prescriptions: New phenazopyridine [Pyridium] 100 mg tablet 100 mg PO TID PRN (Reason: pain) Qty: 14 0RF oxycodone 5 mg tablet 5 mg PO Q6H PRN (Reason: pain) 3 Days Qty: 20 0RF ciprofloxacin HCl 500 mg tablet 500 mg PO BID Qty: 10 0RF Continued ketorolac 10 mg tablet 10 mg PO Q6H PRN (Reason: pain) hydromorphone [Dilaudid] 2 mg tablet 2 mg PO Q4H PRN (Reason: pain) dextroamphetamine-amphetamine 10 mg tablet 2 tab PO DAILY baclofen 10 mg tablet 20 mg PO BID PRN pantoprazole 40 mg tablet,delayed release (DR/EC) 40 mg PO DAILY Discontinued ciprofloxacin HCl 500 mg tablet 500 mg PO Q12.TCU Referrals / Follow Up: HERBER HUFF [Other] Rafy Kaur MD [Med Staff - Active Staff] - Disposition Disposition (needs filled in before D/C Order can be placed): Home, Self Care
[2024-09-15] MEDS: Cefazolin 2 GM in 0.9% Normal Saline (100mL Bag) 100 ML IV (12:25)
[2024-09-15] MEDS: Lidocaine Jelly 2% 20 ML Syringe (URO-JET) 1 APPLIC (12:34)
--- NOTE | 2024-09-15 12:40 | OP.PCM_ITS ---
Operative Report (Standard) Operative Information Date of Procedure: 09/15/24 Pre-Operative Diagnosis: Left hydronephrosis status post ureteroscopy Post-Operative Diagnosis: The same Surgery/Procedure Performed: Cystoscopy left retrograde pyelogram and left stent placement quality assurance test program manager: No Type of Anesthesia: Local MAC RN Documented Start/Stop Times: Operation Date: 09/15/24 12:40 Case Time Into Pre-Op 09/15/24 11:35 Out of Pre-Op 09/15/24 12:18 Anesthesia Start 09/15/24 12:25 Into Room 09/15/24 12:25 Procedure Start 09/15/24 12:35 Procedure Start Time: 12:35 Procedure Stop Time: 12:41 Select all DRAINS/GRAFTS/IMPLANTS that apply: Drains Drain details: 6 Iraqi by 26 cm stent Estimated Blood Loss: None Specimen collected: No Description of surgery: Indications a 54-year-old female who had a stone in the distal ureter underwent ureteroscopy and laser lithotripsy and stent placement I did balloon dilate the ureter at that point thought that leaving the stent out would be fine send there is a lot of stent discomfort so we did not place a stent at the end of the procedure she ended up having a lot of renal colic saw her in the office today for follow-up still having left renal colic ultrasound ultrasound in the office demonstrated left hydronephrosis CAT scan was done that demonstrated left hydroureteronephrosis no stone obstruction I think she does edema of the distal left ureter so organ to place a stent today do a retrograde pyelogram Patient was taken back to the operative room after smooth duction of anesthesia she was placed in dorsolithotomy position lidocaine jelly was placed in the urethra went into the bladder with a 21 Iraqi rigid cystourethroscope the entire urethra and bladder were normal the left ureter was patent open I cannulated the wire went up easily without any resistance but a Pollick catheter over this went up easily without any resistance performed a retrograde pyelogram to see contrast going up into the kidney. I then put a wire through the Pollick catheter backloaded this off and then put a stent a 6 Iraqi by 26 Iraqi stent up in the left kidney once there was good position pulled the wire and the stent coiled in the kidney bladder good position plan will be to leave the stent in for a week and then have her come back next for cystoscopy stent removal in the office. Surgical Findings: Left hydronephrosis down to the distal ureter stent placed Complications Complications: No Admit VTE Documentation VTE Present on Admission: No VTE Mechan Device Prophylaxis: SCD's VTE Pharm Prophylaxis ordered?: No
--- NOTE | 2024-09-15 12:52 | PCM.POST.ANE ---
Anesthesia: Postop Eval I Current Vital Signs Temperature: 97.6 F Pulse Rate: 73 Blood Pressure: 145/75 Respiratory Rate: 16 Pulse Ox: 94 Oxygen Delivery Method: Room Air Assessment Airway patent: Yes Spontaneous unlabored respirations: Yes Mental status: Awake and Calm nausea: No Vomiting: No Anesthesia Complication: No Fluid Hydration Crystalloid volume administer (ml): 500 Total IV fluid infused: 500 Progress Note Anesthesia document: Postop Eval 1 completed: Yes
[2024-09-15] MEDS: Ketorolac 15 MG/ML Vial IV (13:02)
--- NOTE | 2024-09-15 13:14 | POSTOPAN2_ITS ---
Anesthesia Postop Eval I Sum Postop Eval Completion status Anesthesia document: Postop Eval 1 completed: Yes Anesthesia Postop Eval I Summary Anesthesia Postop Eval I Summary: Anesthesia Postop Eval I: Assessment Summary Airway patent Yes 09/15/24 12:53 FIELD TECHNICAL SUPPORT CONSULTANT.SHOF Spontaneous unlabored Yes 09/15/24 12:53 FIELD TECHNICAL SUPPORT CONSULTANT.SHOF respirations Mental status Awake,Calm 09/15/24 12:53 FIELD TECHNICAL SUPPORT CONSULTANT.SHOF nausea No 09/15/24 12:53 FIELD TECHNICAL SUPPORT CONSULTANT.SHOF Vomiting No 09/15/24 12:53 FIELD TECHNICAL SUPPORT CONSULTANT.SHOF Anesthesia Postop Eval I: Fluid Summary Crystalloid volume administer 500 09/15/24 12:53 FIELD TECHNICAL SUPPORT CONSULTANT.SHOF (ml) Colloids volume administered ( ml) Blood Product volume administered (ml) Total IV fluid infused 500 09/15/24 12:53 FIELD TECHNICAL SUPPORT CONSULTANT.SHOF Anesthesia Postop Eval I: Summary Notes Anesthesia Complication No 09/15/24 12:53 FIELD TECHNICAL SUPPORT CONSULTANT.SHOF Anesthesia Complication Comment: Post-operative progress note Anesthesia: Postop Eval II Evaluation Mental status: Awake Pain Level: 1 nausea: No Vomiting: No
--- NOTE | 2024-09-15 13:14 | PCM.POSTANE2 ---
Anesthesia Postop Eval I Sum Postop Eval Completion status Anesthesia document: Postop Eval 1 completed: Yes Anesthesia Postop Eval I Summary Anesthesia Postop Eval I Summary: Anesthesia Postop Eval I: Assessment Summary Airway patent Yes 09/15/24 12:53 SHELLS INSPECTOR.SHOF Spontaneous unlabored Yes 09/15/24 12:53 SHELLS INSPECTOR.SHOF respirations Mental status Awake,Calm 09/15/24 12:53 SHELLS INSPECTOR.SHOF nausea No 09/15/24 12:53 SHELLS INSPECTOR.SHOF Vomiting No 09/15/24 12:53 SHELLS INSPECTOR.SHOF Anesthesia Postop Eval I: Fluid Summary Crystalloid volume administer 500 09/15/24 12:53 SHELLS INSPECTOR.SHOF (ml) Colloids volume administered ( ml) Blood Product volume administered (ml) Total IV fluid infused 500 09/15/24 12:53 SHELLS INSPECTOR.SHOF Anesthesia Postop Eval I: Summary Notes Anesthesia Complication No 09/15/24 12:53 SHELLS INSPECTOR.SHOF Anesthesia Complication Comment: Post-operative progress note Anesthesia: Postop Eval II Evaluation Mental status: Awake Pain Level: 1 nausea: No Vomiting: No
== END 2024-09-15 14:01 | disposition home or self-care (01) ==
LOC: SDC 11:17 → AC 11:18
PROVIDERS: Referring Provider Urology; Visit Provider Urology
PROC: (CPT 52332; principal; 2024-09-15 12:30)
DX: N13.30 Unspecified hydronephrosis (principal); F17.210 Nicotine dependence, cigarettes, uncomplicated; Z79.899 Other long term (current) drug therapy
CPT/HCPCS: 52332; 52351; 74176; 76000; C1769; C2617